=== PATIENT | female | born 1960 | race Hispanic/Latino ===

== ENCOUNTER → 2017-09-15 | Outpatient (CLI) | payer OTHER | LOC: RAH 13:39 | PROVIDERS: ATTEND Internal Medicine Hematology & Oncology | DX: R59.9 Enlarged lymph nodes, unspecified (principal); N64.4 Mastodynia | CPT/HCPCS: 76641 ==

== ENCOUNTER → 2017-12-27 | Outpatient (CLI) | payer OTHER | END | disposition home or self-care (01) | LOC: RAH 14:38 | PROVIDERS: ATTEND Internal Medicine Hematology & Oncology | DX: N64.4 Mastodynia (principal); Z85.3 Personal history of malignant neoplasm of breast | CPT/HCPCS: 76641 ==

== ENCOUNTER → 2018-05-16 | Outpatient (CLI) | payer OTHER | END | disposition home or self-care (01) | LOC: OIH 14:06 | PROVIDERS: ATTEND Family Medicine | DX: M94.0 Chondrocostal junction syndrome [Tietze] (principal) | CPT/HCPCS: 71046 ==

== ENCOUNTER → 2018-06-29 | Outpatient (CLI) | payer OTHER | END | disposition home or self-care (01) | LOC: RAH 08:08 | PROVIDERS: ATTEND Internal Medicine Hematology & Oncology | DX: R92.8 Other abnormal and inconclusive findings on diagnostic imaging of breast (principal); Z85.3 Personal history of malignant neoplasm of breast | CPT/HCPCS: 77066 ==